=== PATIENT | male | born 1940 | race Caucasian/White ===

== ENCOUNTER 2019-04-19 00:11 | Inpatient (IN) ==
[2019-04-19] MEDS ORDERED: Naloxone 0.4 MG/ML INJ IVP PRN (04:02)
[2019-04-19] MEDS: Norepinephrine 4 MG in 0.9 % Sodium Chloride 250 ML IVC SCH (04:34)
[2019-04-19] MEDS: 0.9 % Sodium Chloride 1,000 ML IVC SCH ×3 (04:43→19:22)
[2019-04-19 04:51] LABS: Mean Corpuscular Hemoglobin 29.4 pg (28.0-33.3); Red Cell Distribution Width 14.9 % (11.5-14.5)
[2019-04-19 04:53] LABS: Hematocrit 35.3 % (37.5-50.1); Hemoglobin 11.4 g/dL (12.9-16.9); Immature Platelets 5.7 % (1.1-6.1); Lymphocytes # 0.3 K/mcL (0.6-4.6); Mean Corpuscular HGB Conc 32.3 g/dL (31.6-35.5); Mean Platelet Volume 10.3 fL (9.4-12.4); Red Blood Count 3.88 M/mcL (4.19-5.50); White Blood Count 13.5 K/mcL (4.3-11.1)
[2019-04-19 05:04] LABS: Phosphorous 3.3 mg/dL (2.7-4.5)
[2019-04-19 05:05] LABS: Albumin 2.9 g/dL (3.5-5.7); Albumin/Globulin Ratio 1.1 (1.1-2.2); Bilirubin,Total 6.9 mg/dL (0.3-1.0); Calcium 7.5 mg/dL (8.6-10.3); Globulin 2.7 g/dL (2.4-3.5); Magnesium 1.7 mg/dL (1.6-2.6); Potassium 4.3 mEq/L (3.5-5.1); Total Protein 5.6 g/dL (6.4-8.9)
[2019-04-19] MEDS: *HR* Heparin 5,000 UNIT/ML VIAL SQ SCH ×3 (05:24→21:48)
[2019-04-19 05:33] LABS: Platelet Count 83 K/mcL (140-400)
[2019-04-19 05:35] LABS: Monocytes # 1.1 K/mcL (0.0-1.3); Neutrophils # 11.9 K/mcL (1.6-8.9); Platelet Estimate Slight Decrease (Normal)
[2019-04-19] MEDS ORDERED: MetroNIDAZOLE 500 MG/100 ML 500 MG/100 ML BAG IVPB SCH (08:00)
[2019-04-19] MEDS ORDERED: Piperacillin/Tazobactam 3.375 GM in 0.9 % Sodium Chloride Mini Bag 100 ML IVPB SCH (08:00)
[2019-04-19 09:06] LABS: Albumin 2.6 g/dL (3.5-5.7); Albumin/Globulin Ratio 1.1 (1.1-2.2); Bilirubin,Direct 4.3 mg/dL (0.0-0.2); Bilirubin,Indirect 2.2 mg/dL (0.0-1.0); Bilirubin,Total 6.5 mg/dL (0.3-1.0); Globulin 2.3 g/dL (2.4-3.5); Total Protein 4.9 g/dL (6.4-8.9)
[2019-04-19 09:08] LABS: Calcium 7.1 mg/dL (8.6-10.3); Potassium 4.3 mEq/L (3.5-5.1)
[2019-04-19 10:00] LABS: Bilirubin,Urine Large (Negative); Blood,Urine Large (Negative); Clarity,Urine Cloudy (Clear); Color,Urine Amber (Yellow); Glucose,Urine (UA) Normal (Normal); Ketones,Urine Trace mg/dL (Negative); Leukocyte Esterase,Urine Trace (Negative); Nitrite,Urine Negative (Negative); PH,Urine 5.5 pH Units (5.0-8.0); Protein,Urine >=300 mg/dL (Neg-Trace); Urobilinogen,Urine Normal (Normal)
[2019-04-19 10:23] LABS: Hyaline Casts,Urine None Seen per lpf (None-Few); Squamous Epithelial Cell,Urine Many per lpf (None-Few)
[2019-04-19 10:48] LABS: INR 1.4; Prothrombin Time 15.6 Seconds (9.4-12.1)
[2019-04-19 10:59] LABS: Bacteria,Urine Many per hpf (None-Few); Granular Casts,Urine Present per lpf (None Seen); RBC,Urine 50-100 per hpf (0-3); WBC,Urine 15-30 per hpf (0-3)
[2019-04-19 15:16] LABS: Calcium 7.1 mg/dL (8.6-10.3); Potassium 4.2 mEq/L (3.5-5.1)
[2019-04-19] MEDS ORDERED: *HR* Propofol 200 MG/20 ML VIAL IVP ONE (15:50)
[2019-04-19] MEDS ORDERED: *HR* FentaNYL (PF) 100 MCG/2 ML VIAL ONE (15:50)
[2019-04-19] MEDS ORDERED: Lidocaine -MPF 2% 2 ML VIAL ONE (15:52)
[2019-04-19] MEDS ORDERED: *HR* Succinylcholine 200 MG/10 ML VIAL IVP ONE (15:52)
[2019-04-19] MEDS ORDERED: Indomethacin 50 MG SUPP.RECT RC ONE (17:00)
[2019-04-19] MEDS ORDERED: EPHEDrine 50 MG/ML VIAL ONE (17:12)
[2019-04-19] MEDS ORDERED: Dexamethasone 4 MG/ML VIAL ONE (17:41)
[2019-04-19] MEDS ORDERED: Ondansetron 4 MG/2 ML VIAL ONE (17:41)
[2019-04-19] MEDS: Piperacillin/Tazobactam 3.375 GM in 0.9 % Sodium Chloride Mini Bag 100 ML IVPB SCH (18:38)
[2019-04-19] MEDS: Ipratropium/Albuterol Neb 3 ML IH SCH (21:19)
[2019-04-20] MEDS: 0.9 % Sodium Chloride 1,000 ML IVC SCH ×4 (01:10→21:33)
[2019-04-20] MEDS: Norepinephrine 4 MG in 0.9 % Sodium Chloride 250 ML IVC SCH (03:02)
[2019-04-20 03:25] LABS: Hemoglobin 11.4 g/dL (12.9-16.9)
[2019-04-20] MEDS: Ipratropium/Albuterol Neb 3 ML IH SCH ×4 (03:26→22:12)
[2019-04-20 03:27] LABS: Immature Platelets 5.6 % (1.1-6.1); Mean Corpuscular HGB Conc 33.5 g/dL (31.6-35.5); Mean Corpuscular Hemoglobin 29.5 pg (28.0-33.3); Mean Corpuscular Volume 88.1 fL (83.0-100.0); Mean Platelet Volume 10.5 fL (9.4-12.4); Monocytes # 0.4 K/mcL (0.0-1.3); Red Blood Count 3.86 M/mcL (4.19-5.50); Red Cell Distribution Width 15.3 % (11.5-14.5); White Blood Count 10.9 K/mcL (4.3-11.1)
[2019-04-20 03:28] LABS: VBG Ionized Calcium 0.91 mmol/L (1.15-1.35)
[2019-04-20 03:30] LABS: Platelet Count 63 K/mcL (140-400)
[2019-04-20 03:39] LABS: Acinetobacter baumannii by PCR Not Detected (Not Detect); Candida albicans by PCR Not Detected (Not Detect); Candida glabrata by PCR Not Detected (Not Detect); Candida krusei by PCR Not Detected (Not Detect); Candida parapsilosis by PCR Not Detected (Not Detect); Candida tropicalis by PCR Not Detected (Not Detect); Enterobacter cloacae Cmplx PCR Not Detected (Not Detect); Enterococcus by PCR Not Detected (Not Detect); Escherichia coli by PCR DETECTED (Not Detect); Klebsiella oxytoca by PCR Not Detected (Not Detect); Klebsiella pneumoniae by PCR Not Detected (Not Detect); Proteus by PCR Not Detected (Not Detect); Pseudomonas aeruginosa by PCR Not Detected (Not Detect); Serratia marcescens by PCR Not Detected (Not Detect); Staphylococcus aureus by PCR Not Detected (Not Detect); Staphylococcus by PCR Not Detected (Not Detect); Streptococcus agalactiae(B)PCR Not Detected (Not Detect); Streptococcus by PCR Not Detected (Not Detect); Streptococcus pneumoniae PCR Not Detected (Not Detect); Streptococcus pyogenes (A) PCR Not Detected (Not Detect); blaKPC Carbapenem-Resist Gene Not Detected (Not Detect); mecA Methicillin-Resist Gene Not Detected (Not Detect); vanA/B Vancomycin-Resist Genes Not Detected (Not Detect)
[2019-04-20 03:44] LABS: Calcium 6.9 mg/dL (8.6-10.3); Potassium 4.1 mEq/L (3.5-5.1)
[2019-04-20 03:45] LABS: Albumin 2.5 g/dL (3.5-5.7); Albumin/Globulin Ratio 0.9 (1.1-2.2); Bilirubin,Direct 1.9 mg/dL (0.0-0.2); Bilirubin,Indirect 1.1 mg/dL (0.0-1.0); Globulin 2.8 g/dL (2.4-3.5); Magnesium 1.9 mg/dL (1.6-2.6); Total Protein 5.3 g/dL (6.4-8.9)
[2019-04-20 04:09] LABS: Lymphocytes # 0.7 K/mcL (0.6-4.6); Neutrophils # 9.6 K/mcL (1.6-8.9)
[2019-04-20 04:10] LABS: Platelet Estimate Decreased (Normal)
[2019-04-20] MEDS: *HR* Heparin 5,000 UNIT/ML VIAL SQ SCH ×3 (06:06→21:33)
[2019-04-20] MEDS: Piperacillin/Tazobactam 3.375 GM in 0.9 % Sodium Chloride Mini Bag 100 ML IVPB SCH ×2 (06:06→17:10)
[2019-04-20] MEDS ORDERED: Dextrose Gel 15 GM/37.5 ML TUBE PO PRN ×2 (12:18)
[2019-04-20] MEDS ORDERED: *HR* Dextrose 50 % in Water (Syg) 50 ML SYRINGE IVP PRN (12:18)
[2019-04-20] MEDS ORDERED: D5% in Water 1,000 ML IVC PRN (12:18)
[2019-04-20] MEDS: Pantoprazole 40 MG VIAL IVP SCH (13:30)
[2019-04-20 15:34] LABS: Estimated Average Glucose 163 mg/dl
[2019-04-20] MEDS: Insulin LISPRO 300 UNITS/3 ML VIAL SQ SCH ×2 (18:26→23:52)
[2019-04-21] MEDS: 0.9 % Sodium Chloride 1,000 ML IVC SCH ×2 (03:01→10:30)
[2019-04-21] MEDS: Norepinephrine 4 MG in 0.9 % Sodium Chloride 250 ML IVC SCH (03:02)
[2019-04-21] MEDS: Ipratropium/Albuterol Neb 3 ML IH SCH ×4 (03:30→21:40)
[2019-04-21] MEDS: Piperacillin/Tazobactam 3.375 GM in 0.9 % Sodium Chloride Mini Bag 100 ML IVPB SCH ×2 (05:29→17:47)
[2019-04-21] MEDS: *HR* Heparin 5,000 UNIT/ML VIAL SQ SCH ×3 (05:29→21:51)
[2019-04-21] MEDS: Insulin LISPRO 300 UNITS/3 ML VIAL SQ SCH ×4 (05:29→23:45)
[2019-04-21 06:00] LABS: Basophils % 0.2 %
[2019-04-21 06:02] LABS: Hematocrit 40.4 % (37.5-50.1); Hemoglobin 13.3 g/dL (12.9-16.9); Immature Granulocytes % 0.9 % (0-4); Immature Platelets 6.1 % (1.1-6.1); Lymphocytes # 0.3 K/mcL (0.6-4.6); Lymphocytes % 2.5 %; Mean Corpuscular HGB Conc 32.9 g/dL (31.6-35.5); Mean Corpuscular Hemoglobin 29.3 pg (28.0-33.3); Mean Platelet Volume 11.2 fL (9.4-12.4); Monocytes # 0.3 K/mcL (0.0-1.3); Monocytes % 2.7 %; Neutrophils # 10.5 K/mcL (1.6-8.9); Red Blood Count 4.54 M/mcL (4.19-5.50); Red Cell Distribution Width 15.3 % (11.5-14.5); Segmented Neutrophils % 93.7 %; White Blood Count 11.2 K/mcL (4.3-11.1)
[2019-04-21 06:05] LABS: Platelet Count 76 K/mcL (140-400)
[2019-04-21 06:19] LABS: Calcium 7.7 mg/dL (8.6-10.3); Potassium 3.5 mEq/L (3.5-5.1)
[2019-04-21] MEDS ORDERED: Potassium Phosphate 44 MEQ in 0.9 % Sodium Chloride 250 ML IVPB ONE (07:49)
[2019-04-21] MEDS ORDERED: 0.9 % Sodium Chloride 250 ML IVC PRN (07:59)
[2019-04-21] MEDS ORDERED: 0.9 % Sodium Chloride 1,000 ML PRIME SCH (08:00)
[2019-04-21] MEDS: Pantoprazole 40 MG VIAL IVP SCH (08:27)
[2019-04-21 08:40] LABS: VBG Ionized Calcium 0.97 mmol/L (1.15-1.35)
[2019-04-21 08:43] LABS: Albumin 2.8 g/dL (3.5-5.7); Albumin/Globulin Ratio 0.9 (1.1-2.2); Bilirubin,Direct 1.3 mg/dL (0.0-0.2); Bilirubin,Indirect 0.9 mg/dL (0.0-1.0); Bilirubin,Total 2.2 mg/dL (0.3-1.0); Globulin 3.2 g/dL (2.4-3.5); Phosphorous 3.1 mg/dL (2.7-4.5)
[2019-04-21 09:32] LABS: Hepatitis B Surface Antibody < 3.10 mIU/mL
[2019-04-21] MEDS ORDERED: *HR* Heparin 5,000 UNIT/ML VIAL ONE (09:39)
[2019-04-21 09:43] LABS: Hepatitis B Surface Antigen Nonreactive (Nonreactive)
[2019-04-21 10:12] LABS: Hepatitis B Core IgM Nonreactive (Nonreactive)
[2019-04-21] MEDS ORDERED: *HR* Heparin 10,000 UNIT/10 ML VIAL IV PRN (12:50)
[2019-04-22] MEDS: Ipratropium/Albuterol Neb 3 ML IH SCH ×4 (03:24→22:26)
[2019-04-22] MEDS: Norepinephrine 4 MG in 0.9 % Sodium Chloride 250 ML IVC SCH (03:46)
[2019-04-22 03:59] LABS: Basophils % 0.1 %
[2019-04-22 04:02] LABS: Hematocrit 39.2 % (37.5-50.1); Hemoglobin 13.1 g/dL (12.9-16.9); Immature Granulocytes % 0.5 % (0-4); Immature Platelets 8.1 % (1.1-6.1); Lymphocytes # 0.4 K/mcL (0.6-4.6); Lymphocytes % 4.5 %; Mean Corpuscular HGB Conc 33.4 g/dL (31.6-35.5); Mean Corpuscular Hemoglobin 28.8 pg (28.0-33.3); Mean Corpuscular Volume 86.2 fL (83.0-100.0); Mean Platelet Volume 10.8 fL (9.4-12.4); Monocytes # 0.6 K/mcL (0.0-1.3); Monocytes % 6.6 %; Neutrophils # 8.3 K/mcL (1.6-8.9); Red Blood Count 4.55 M/mcL (4.19-5.50); Red Cell Distribution Width 15.4 % (11.5-14.5); Segmented Neutrophils % 88.3 %; White Blood Count 9.4 K/mcL (4.3-11.1)
[2019-04-22 04:08] LABS: Calcium 7.8 mg/dL (8.6-10.3); Potassium 3.6 mEq/L (3.5-5.1)
[2019-04-22 04:12] LABS: Platelet Count 61 K/mcL (140-400)
[2019-04-22] MEDS: Insulin LISPRO 300 UNITS/3 ML VIAL SQ SCH ×4 (05:34→22:22)
[2019-04-22] MEDS: *HR* Heparin 5,000 UNIT/ML VIAL SQ SCH ×3 (05:41→22:14)
[2019-04-22] MEDS: Piperacillin/Tazobactam 3.375 GM in 0.9 % Sodium Chloride Mini Bag 100 ML IVPB SCH ×2 (05:42→17:16)
[2019-04-22] MEDS ORDERED: 0.9 % Sodium Chloride 250 ML IVC PRN ×2 (06:58→09:57)
[2019-04-22] MEDS: Pantoprazole 40 MG VIAL IVP SCH (08:38)
[2019-04-22] MEDS ORDERED: Naloxone 0.4 MG/ML INJ IVP PRN (09:57)
[2019-04-22] MEDS ORDERED: 0.9 % Sodium Chloride 1,000 ML PRIME SCH (09:57)
[2019-04-22] MEDS ORDERED: Norepinephrine 4 MG in 0.9 % Sodium Chloride 250 ML IVC SCH (09:57)
[2019-04-22] MEDS ORDERED: D5% in Water 1,000 ML IVC PRN (09:57)
[2019-04-22] MEDS ORDERED: *HR* Dextrose 50 % in Water (Syg) 50 ML SYRINGE IVP PRN (09:57)
[2019-04-22] MEDS ORDERED: Dextrose Gel 15 GM/37.5 ML TUBE PO PRN ×2 (09:57)
[2019-04-22] MEDS ORDERED: *HR* Heparin 10,000 UNIT/10 ML VIAL IV PRN (11:35)
[2019-04-22] MEDS ORDERED: Insulin LISPRO 300 UNITS/3 ML VIAL SQ SCH (22:15)
[2019-04-23 03:00] LABS: Basophils % 0.2 %; Eosinophils % 0.2 %
[2019-04-23 03:02] LABS: Hematocrit 39.6 % (37.5-50.1); Hemoglobin 13.2 g/dL (12.9-16.9); Immature Platelets 10.9 % (1.1-6.1); Lymphocytes # 0.8 K/mcL (0.6-4.6); Lymphocytes % 6.5 %; Mean Corpuscular HGB Conc 33.3 g/dL (31.6-35.5); Mean Corpuscular Hemoglobin 28.6 pg (28.0-33.3); Mean Corpuscular Volume 85.7 fL (83.0-100.0); Mean Platelet Volume 11.9 fL (9.4-12.4); Monocytes # 0.9 K/mcL (0.0-1.3); Monocytes % 6.8 %; Red Blood Count 4.62 M/mcL (4.19-5.50); Red Cell Distribution Width 15.4 % (11.5-14.5); Segmented Neutrophils % 85.3 %; White Blood Count 12.6 K/mcL (4.3-11.1)
[2019-04-23 03:05] LABS: Neutrophils # 10.8 K/mcL (1.6-8.9); Platelet Count 79 K/mcL (140-400)
[2019-04-23 03:13] LABS: Calcium 7.9 mg/dL (8.6-10.3); Potassium 3.7 mEq/L (3.5-5.1)
[2019-04-23 04:32] LABS: Magnesium 1.9 mg/dL (1.6-2.6)
[2019-04-23] MEDS: Ipratropium/Albuterol Neb 3 ML IH SCH ×4 (04:38→22:02)
[2019-04-23] MEDS: Piperacillin/Tazobactam 3.375 GM in 0.9 % Sodium Chloride Mini Bag 100 ML IVPB SCH (05:48)
[2019-04-23] MEDS: *HR* Heparin 5,000 UNIT/ML VIAL SQ SCH ×3 (05:51→22:23)
[2019-04-23] MEDS ORDERED: 0.9 % Sodium Chloride 250 ML IVC PRN (08:55)
[2019-04-23] MEDS ORDERED: *HR* Heparin 10,000 UNIT/10 ML VIAL IV PRN (08:55)
[2019-04-23] MEDS: Pantoprazole 40 MG VIAL IVP SCH (09:18)
[2019-04-23] MEDS: Insulin LISPRO 300 UNITS/3 ML VIAL SQ SCH ×4 (09:21→22:14)
[2019-04-23] MEDS: cefTRIAXone 1,000 MG in Water for inj. (sterile) 10 ML IVP SCH (15:31)
[2019-04-23] MEDS: MetroNIDAZOLE 500 MG/100 ML 500 MG/100 ML BAG IVPB SCH ×2 (15:32→22:14)
[2019-04-23] MEDS: Sucralfate 1 GM TABLET PO SCH ×2 (15:32→22:14)
[2019-04-23] MEDS: Insulin DETEMIR 100 UNIT/ML X5UNITS SQ SCH (22:14)
[2019-04-24 04:17] LABS: Basophils % 0.3 %; Monocytes % 8.3 %
[2019-04-24 04:19] LABS: Eosinophils % 0.3 %; Hematocrit 36.6 % (37.5-50.1); Hemoglobin 12.1 g/dL (12.9-16.9); Immature Granulocytes % 1.4 % (0-4); Immature Platelets 8.6 % (1.1-6.1); Lymphocytes # 0.5 K/mcL (0.6-4.6); Lymphocytes % 6.5 %; Mean Corpuscular HGB Conc 33.1 g/dL (31.6-35.5); Mean Corpuscular Hemoglobin 28.9 pg (28.0-33.3); Mean Corpuscular Volume 87.6 fL (83.0-100.0); Mean Platelet Volume 12.2 fL (9.4-12.4); Monocytes # 0.6 K/mcL (0.0-1.3); Neutrophils # 6.1 K/mcL (1.6-8.9); Red Blood Count 4.18 M/mcL (4.19-5.50); Segmented Neutrophils % 83.2 %; White Blood Count 7.3 K/mcL (4.3-11.1)
[2019-04-24] MEDS: Ipratropium/Albuterol Neb 3 ML IH SCH ×4 (04:20→21:34)
[2019-04-24 04:24] LABS: Platelet Count 88 K/mcL (140-400)
[2019-04-24 04:34] LABS: Albumin 2.6 g/dL (3.5-5.7); Albumin/Globulin Ratio 0.9 (1.1-2.2); Bilirubin,Total 1.4 mg/dL (0.3-1.0); Calcium 7.7 mg/dL (8.6-10.3); Globulin 2.8 g/dL (2.4-3.5); Total Protein 5.4 g/dL (6.4-8.9)
[2019-04-24] MEDS: *HR* Heparin 5,000 UNIT/ML VIAL SQ SCH ×3 (05:30→21:58)
[2019-04-24] MEDS ORDERED: Potassium Chloride Elixir 20 MEQ/15 ML UDC PO ONE (07:36)
[2019-04-24] MEDS: cloNIDine HCl 0.1 MG TABLET PO SCH (08:13)
[2019-04-24] MEDS: Cyanocobalamin (B-12) 1,000 MCG TABLET PO SCH (08:13)
[2019-04-24] MEDS: Aspirin Enteric Coated 81 MG Tablet PO SCH (08:13)
[2019-04-24] MEDS: Finasteride 5 MG TABLET PO SCH (08:13)
[2019-04-24] MEDS: Insulin LISPRO 300 UNITS/3 ML VIAL SQ SCH ×4 (08:13→21:35)
[2019-04-24] MEDS: Sucralfate 1 GM TABLET PO SCH ×3 (08:13→21:58)
[2019-04-24] MEDS: Metoprolol XL (24 HR) Succ 50 MG TAB.ER.24H PO SCH (08:14)
[2019-04-24] MEDS: MetroNIDAZOLE 500 MG/100 ML 500 MG/100 ML BAG IVPB SCH ×2 (08:14→16:03)
[2019-04-24] MEDS: cefTRIAXone 1,000 MG in Water for inj. (sterile) 10 ML IVP SCH (08:15)
[2019-04-24] MEDS: Pantoprazole 40 MG VIAL IVP SCH (08:15)
[2019-04-24] MEDS ORDERED: NON-FORMULARY MEDICATION 1 EACH EACH (Pantoprazole Sodium [Protonix] 40 MG) PO SCH (09:00)
[2019-04-24] MEDS: Insulin DETEMIR 100 UNIT/ML X5UNITS SQ SCH (21:59)
[2019-04-25] MEDS: MetroNIDAZOLE 500 MG/100 ML 500 MG/100 ML BAG IVPB SCH ×2 (02:01→08:44)
[2019-04-25] MEDS: Ipratropium/Albuterol Neb 3 ML IH SCH ×2 (04:06→10:37)
[2019-04-25] MEDS: *HR* Heparin 5,000 UNIT/ML VIAL SQ SCH ×3 (05:18→21:00)
[2019-04-25 05:57] LABS: Basophils % 0.2 %; Eosinophils % 0.6 %; Hematocrit 33.8 % (37.5-50.1); Hemoglobin 11.6 g/dL (12.9-16.9); Immature Granulocytes % 1.4 % (0-4); Lymphocytes # 0.5 K/mcL (0.6-4.6); Lymphocytes % 7.5 %; Mean Corpuscular HGB Conc 34.3 g/dL (31.6-35.5); Mean Corpuscular Hemoglobin 28.9 pg (28.0-33.3); Mean Corpuscular Volume 84.1 fL (83.0-100.0); Mean Platelet Volume 12.5 fL (9.4-12.4); Monocytes # 0.4 K/mcL (0.0-1.3); Monocytes % 7.1 %; Neutrophils # 5.2 K/mcL (1.6-8.9); Platelet Count 112 K/mcL (140-400); Red Blood Count 4.02 M/mcL (4.19-5.50); Red Cell Distribution Width 15.1 % (11.5-14.5); Segmented Neutrophils % 83.2 %; White Blood Count 6.2 K/mcL (4.3-11.1)
[2019-04-25 06:16] LABS: Calcium 7.4 mg/dL (8.6-10.3); Magnesium 1.5 mg/dL (1.6-2.6); Phosphorous 3.1 mg/dL (2.7-4.5); Potassium 3.4 mEq/L (3.5-5.1)
[2019-04-25] MEDS ORDERED: Artificial Tears SOLN 15 ML BOTTLE BOTH EYES PRN (07:25)
[2019-04-25] MEDS ORDERED: Potassium Chloride Elixir 20 MEQ/15 ML UDC PO ONE (07:31)
[2019-04-25] MEDS: Metoprolol XL (24 HR) Succ 50 MG TAB.ER.24H PO SCH (08:39)
[2019-04-25] MEDS: Aspirin Enteric Coated 81 MG Tablet PO SCH (08:40)
[2019-04-25] MEDS: Cyanocobalamin (B-12) 1,000 MCG TABLET PO SCH (08:40)
[2019-04-25] MEDS: cloNIDine HCl 0.1 MG TABLET PO SCH (08:40)
[2019-04-25] MEDS: Finasteride 5 MG TABLET PO SCH (08:40)
[2019-04-25] MEDS: Sucralfate 1 GM TABLET PO SCH ×3 (08:40→15:52)
[2019-04-25] MEDS: Insulin LISPRO 300 UNITS/3 ML VIAL SQ SCH ×4 (08:47→20:58)
[2019-04-25] MEDS ORDERED: cefTRIAXone 1,000 MG in 0.9 % Sodium Chloride Mini Bag 100 ML IVPB SCH (09:00)
[2019-04-25] MEDS ORDERED: Ipratropium/Albuterol Neb 3 ML IH PRN (11:27)
[2019-04-25] MEDS ORDERED: cefTRIAXone 1,000 MG in 0.9 % Sodium Chloride Mini Bag 100 ML IVPB ONE (14:54)
[2019-04-25] MEDS: metroNIDAZOLE 500 MG TABLET PO SCH ×2 (15:52→21:00)
[2019-04-25] MEDS: Insulin DETEMIR 100 UNIT/ML X5UNITS SQ SCH (20:58)
[2019-04-26 04:46] LABS: Basophils % 0.1 %; Eosinophils # 0.1 K/mcL (0.0-0.6); Eosinophils % 1.1 %; Hematocrit 35.3 % (37.5-50.1); Hemoglobin 11.8 g/dL (12.9-16.9); Immature Granulocytes % 1.8 % (0-4); Lymphocytes # 0.7 K/mcL (0.6-4.6); Lymphocytes % 8.9 %; Mean Corpuscular HGB Conc 33.4 g/dL (31.6-35.5); Mean Corpuscular Hemoglobin 28.7 pg (28.0-33.3); Mean Corpuscular Volume 85.9 fL (83.0-100.0); Mean Platelet Volume 12.3 fL (9.4-12.4); Monocytes # 0.5 K/mcL (0.0-1.3); Monocytes % 6.6 %; Platelet Count 162 K/mcL (140-400); Red Blood Count 4.11 M/mcL (4.19-5.50); Red Cell Distribution Width 14.9 % (11.5-14.5); Segmented Neutrophils % 81.5 %; White Blood Count 7.3 K/mcL (4.3-11.1)
[2019-04-26 05:06] LABS: Calcium 7.3 mg/dL (8.6-10.3); Potassium 3.8 mEq/L (3.5-5.1)
[2019-04-26] MEDS: *HR* Heparin 5,000 UNIT/ML VIAL SQ SCH ×3 (05:51→20:58)
[2019-04-26] MEDS: Insulin LISPRO 300 UNITS/3 ML VIAL SQ SCH ×4 (07:49→20:59)
[2019-04-26] MEDS: Aspirin Enteric Coated 81 MG Tablet PO SCH (07:49)
[2019-04-26] MEDS: Sucralfate 1 GM TABLET PO SCH ×3 (07:49→15:09)
[2019-04-26] MEDS: cloNIDine HCl 0.1 MG TABLET PO SCH (07:49)
[2019-04-26] MEDS: Cyanocobalamin (B-12) 1,000 MCG TABLET PO SCH (07:50)
[2019-04-26] MEDS: metroNIDAZOLE 500 MG TABLET PO SCH ×3 (07:50→21:00)
[2019-04-26] MEDS: Finasteride 5 MG TABLET PO SCH (07:52)
[2019-04-26] MEDS: cefTRIAXone 2,000 MG in 0.9 % Sodium Chloride Mini Bag 100 ML IVPB SCH (07:59)
[2019-04-26 13:36] LABS: Bilirubin,Urine Negative (Negative); Blood,Urine Large (Negative); Clarity,Urine Cloudy (Clear); Color,Urine Dark Yellow (Yellow); Glucose,Urine (UA) Normal (Normal); Ketones,Urine Negative (Negative); Leukocyte Esterase,Urine Moderate (Negative); Nitrite,Urine Negative (Negative); Protein,Urine 30 mg/dL (Neg-Trace); Specific Gravity,Urine 1.017 (1.010-1.025); Urobilinogen,Urine Normal (Normal)
[2019-04-26 13:59] LABS: Bacteria,Urine None Seen per hpf (None-Few); RBC,Urine TNTC per hpf (0-3); Squamous Epithelial Cell,Urine Many per lpf (None-Few); WBC,Urine 15-30 per hpf (0-3)
[2019-04-26] MEDS: Benzonatate 100 MG CAPSULE PO PRN ×2 (16:41→21:00)
[2019-04-26] MEDS: Insulin DETEMIR 100 UNIT/ML X5UNITS SQ SCH (20:59)
[2019-04-27] MEDS: Benzonatate 100 MG CAPSULE PO PRN ×2 (03:35→07:45)
[2019-04-27 05:37] LABS: Calcium 7.6 mg/dL (8.6-10.3); Potassium 3.4 mEq/L (3.5-5.1)
[2019-04-27] MEDS: *HR* Heparin 5,000 UNIT/ML VIAL SQ SCH ×3 (05:37→20:38)
[2019-04-27] MEDS: Cyanocobalamin (B-12) 1,000 MCG TABLET PO SCH (07:44)
[2019-04-27] MEDS: Finasteride 5 MG TABLET PO SCH (07:44)
[2019-04-27] MEDS: metroNIDAZOLE 500 MG TABLET PO SCH ×3 (07:44→20:38)
[2019-04-27] MEDS: cloNIDine HCl 0.1 MG TABLET PO SCH (07:44)
[2019-04-27] MEDS: cefTRIAXone 2,000 MG in 0.9 % Sodium Chloride Mini Bag 100 ML IVPB SCH (07:45)
[2019-04-27] MEDS: Aspirin Enteric Coated 81 MG Tablet PO SCH (07:45)
[2019-04-27] MEDS: Sucralfate 1 GM TABLET PO SCH ×3 (07:45→16:51)
[2019-04-27] MEDS: Insulin LISPRO 300 UNITS/3 ML VIAL SQ SCH ×4 (07:49→20:38)
[2019-04-27] MEDS: Insulin DETEMIR 100 UNIT/ML X5UNITS SQ SCH (20:39)
[2019-04-28 04:46] LABS: Basophils % 0.4 %; Eosinophils # 0.1 K/mcL (0.0-0.6); Eosinophils % 1.3 %; Hematocrit 34.4 % (37.5-50.1); Hemoglobin 11.4 g/dL (12.9-16.9); Immature Granulocytes % 1.1 % (0-4); Lymphocytes # 0.8 K/mcL (0.6-4.6); Lymphocytes % 14.3 %; Mean Corpuscular HGB Conc 33.1 g/dL (31.6-35.5); Mean Corpuscular Hemoglobin 28.7 pg (28.0-33.3); Mean Corpuscular Volume 86.6 fL (83.0-100.0); Mean Platelet Volume 11.2 fL (9.4-12.4); Monocytes # 0.6 K/mcL (0.0-1.3); Monocytes % 11.1 %; Platelet Count 247 K/mcL (140-400); Red Blood Count 3.97 M/mcL (4.19-5.50); Segmented Neutrophils % 71.8 %; White Blood Count 5.5 K/mcL (4.3-11.1)
[2019-04-28 05:21] LABS: Calcium 7.4 mg/dL (8.6-10.3); Potassium 3.5 mEq/L (3.5-5.1)
[2019-04-28] MEDS: Sucralfate 1 GM TABLET PO SCH ×2 (06:12→10:21)
[2019-04-28] MEDS: *HR* Heparin 5,000 UNIT/ML VIAL SQ SCH (06:12)
[2019-04-28] MEDS: Insulin LISPRO 300 UNITS/3 ML VIAL SQ SCH ×2 (09:58→12:05)
[2019-04-28] MEDS: cefTRIAXone 2,000 MG in 0.9 % Sodium Chloride Mini Bag 100 ML IVPB SCH (10:19)
[2019-04-28] MEDS: Aspirin Enteric Coated 81 MG Tablet PO SCH (10:20)
[2019-04-28] MEDS: Finasteride 5 MG TABLET PO SCH (10:20)
[2019-04-28] MEDS: Cyanocobalamin (B-12) 1,000 MCG TABLET PO SCH (10:20)
[2019-04-28] MEDS: cloNIDine HCl 0.1 MG TABLET PO SCH (10:20)
[2019-04-28] MEDS: metroNIDAZOLE 500 MG TABLET PO SCH (10:21)
[2019-04-28 12:05] VITALS: BP 198/72
== END 2019-04-28 14:03 | disposition home or self-care (01) | DRG 871 ==
LOC: ICNU 03:17 → INTOOBSV 03:17 → SUATTDRO 04-20 16:00 → 2ANU 04-22 20:13
PROVIDERS: ADMIT Internal Medicine; ATTEND Student in an Organized Health Care Education/Training Program